=== PATIENT | female | born 1945 | race Caucasian/White ===

== ENCOUNTER → 2017-03-16 | Day surgery (SDC) | payer MEDICARE, OTHER ==
[~2017-03-16] VITALS: Ht 167.6 cm; Wt 63.0 kg
[2017-03-16] VITALS (11 sets, daily range): BP systolic 109–152; BP diastolic 55–72; PULSE 53–76; RESP 11–19; O2SAT 95–100
[~2017-03-16] MED LIST: CALC600T12 PO; CHOL200025 PO; CeFAZolin Inj 2 GM in IV Premix 1 EACH IV ONE; Dexamethasone 4 mg/mL Inj IVPUSH PRN; Dexamethasone 4 mg/mL Inj ONE; EPHEDrine Sulfate 50 mg/mL Inj IVPUSH PRN; EPHEDrine/NS 5 mg/mL 5 mL Syringe ONE; GLUC-120 PO; Glycopyrrolate 0.2 MG/ML 1mL Inj ONE; HYDR-656 PO; LEVO100T6 PO; LUTE1CAP4 PO; Lactated Ringer's 1,000 ML IV SCH; Lactated Ringer's 500 ML IV PRN; Lidocaine 2%-Epi 1:100,000 20 mL Inj NERVEBLOCK ONE; MULT-1018 PO; MetoCLOpramide 5 mg/mL 2 mL Inj IVPUSH PRN; OXYC1TAB24 PO; Ondansetron 2 mg/mL 2 mL Inj IVPUSH PRN; Ondansetron 2 mg/mL 2 mL Inj ONE; Phenylephrine 10,000 mCg/mL Inj IVPUSH PRN; Propofol 10,000 mCg/mL 20 mL Inj ONE; fentaNYL-PF 50 mCg/mL 2 mL Inj IVPUSH PRN; fentaNYL-PF 50 mCg/mL 2 mL Inj ONE; oxyCODONE-Acetamin 5-325 mg Tablet PO PRN
[2017-03-16] MEDS: Lactated Ringer's 1,000 ML IV SCH ×2 (06:28→07:19)
--- NOTE | 2017-03-16 06:49 | PCM.HPANE ---
Patient Data Date of Service: Mar 16, 2017 Surgeon Admitting Provider: Attending Provider:Deedee Galeas DPM Primary Care Physician:Jim Other Provider:Monae Chairez Anesthesia Reason for Visit Right Foot Hallux Valgus Ht/WT & BMI Height (Feet): 5 Height (Inches): 6 Weight (Kilograms): 63 Body Mass Index 22.00 Allergies Coded Allergies: No Known Allergies (Verified , 03/04/04) Past Anesthesia History Anesthesia History: Denies:: Abnormal Airway, Anesthesia Reactions, Difficult Intubation, Fam Anesthesia Reaction, Malignant Hyperthermia Diabetes History Hx Diabetes?: No MRSA MRSA: No Medications Hypertension Medication: No Home Meds Incl Beta Juan: No Reported Medications Cholecalciferol (Vitamin D3) (Vitamin D3)2,000 Unit Tablet2,000 Unit PO DAILY 03/09/17 oxyCODONE-Acetaminophen 5-325 mg 1 Each Tablet1-2 Tab PO Q6H PRN For Pain Ref 0 03/09/17 Multivitamin (Multi Vitamin Daily)1 Each Tablet1 Each PO DAILY 30 Days Ref 0 03/09/17 Lutein/Zeaxanthin (Lutein-Zeaxanthin 25-5 mg Sfgl)1 Each Capsule1 Each PO DAILYWD 03/09/17 Levothyroxine 100 Mcg [id number] Mcg PO DAILY For Thyroid Replacement Ref 0 03/09/17 hydrOXYzine Hcl (HydrOXYzine Hcl)25 Mg [id number] Mg PO PRN For Spasm Ref 0 03/09/17 Gluc 2Kcl/Chondr/Farhat Hy/Hy AC (Glucosamine & Chondroitin Cap)1 Each Capsule1 Each PO DAILY 03/09/17 Calcium Carbonate (Calcium)600 Mg Tablet1,200 Mg PO DAILY 03/09/17 Discontinued Reported Medications Ibuprofen 200 Mg [id number] Mg PO QID PRN For Pain Ref 0 10/10/14 Acetaminophen (Tylenol Extra Strength)500 Mg Nxkcna101 Mg PO PRN PRN For Headache 10/10/14 Magnesium Oxide (Magnesium)400 Mg [id number] Mg PO DAILY 10/10/14 [Tuan Red] No Conflict Check1 Capsule PO DAILY 10/10/14 Cholecalciferol (Vitamin D3) (Vitamin D3)1,000 Unit Tab.chew1,000 Unit PO DAILY 10/10/14 Calcium Carbonate (Calcium)600 Mg Tablet1,200 Mg PO DAILY 10/10/14 Lutein 20 Mg Mxfnsrb19 Mg PO DAILY 10/10/14 Multivitamin (Multi Vitamin Daily)1 Each Tablet1 Each PO DAILY 30 Days Ref 0 10/10/14 Levothyroxine 100 Mcg [id number] Mcg PO DAILY For Thyroid Replacement #30 TABLET Ref 0 10/10/14 History History of ENT Problems?: No HEENT History: Positive for:: Hearing Problem Denies:: Abnormal Airway Cataracts Difficult Intubation Dysphagia Glaucoma Sinus Problem Denture Type: None Teeth Condition: Within Normal Limits Hx of Heart Problems?: No Cardiovascular History: Denies:: AICD Abdominal Aortic Aneurism Atrial Fibrillation Cardiac Surgery Chest Pain Congestive Heart Failure Coronary Artery Disease Edema Heart Murmur Hypertension Irregular Heartbeat Pacemaker Peripheral Vascular Rheumatic Fever Thrombophlebitis Valvular Heart Disease Hx of Respiratory Problem?: No Respiratory History: Denies:: Asthma COPD Emphysema Oxygen Administration Pneumonia Tuberculosis Use of C-PAP Machine Hx Neurologic Problems?: No Neurological History: Denies:: CVA Dizziness Headaches (remote hx of ) Multiple Sclerosis Parkinson's Disease Seizures TIA Hx of GI Problems?: No Hx of Problems?: No Genitourinary History: Denies:: Kidney Stones Urinary Tract Infection Female Hx: Positive for:: Problems with Breasts? (hx of right mastectomy ) Denies:: Currently Skin History: Denies:: History Skin Disorders? Pressure Ulcers Hx Musculoskeletal Problems?: Yes Musculoskeletal History: Positive for:: Musculoskeletal Trauma (right foot bunion current admission problem) Osteoarthritis Denies:: Back Injury Fibromyalgia Joint Replacement Myasthenia Gravis Rheumatoid Arthritis Systemic Lupus Hx of Psycho/Social Problems?: No Psycho Social History: Denies:: Anxiety Hx Depression Hx Surgeries?: Yes (right mastectomy,tubal, dandre ) Hx Any Other Health Problems?: Yes Other History: Positive for:: Cancer (right breast ) Denies:: Thyroid Disease History Blood Transfusions: Positive for:: Accept Blood Products? Denies:: Blood Transfusions Hx Diabetes: No Hx Alcohol Use: YesAlcoholic Drinks Per Day: holidaysHx Substance Use: No Have You Smoked inLast 12 mo: No Stop/Bang Treated for Sleep Apnea?: No Do You Have a CPAP Machine?: No S-Snoring: Do You Snore Loudly: No T-Tired: feel tired, fatigued: No O-Obsered: Observed not breath: No P-Blood Pressure: treated: No B- Body Mass Index > 35 kg/m2: No A- Age over 50: Yes N- Neck Large Circumference: No G- Gender Male: No NGA Total Score: 1 NGA Risk Assessment: Low Risk, <3 Yes Risk Assessment Category Category 1A: Patient has history of documented sleep apnea, and HAS NOT received any narcotic, sedative or anesthesia administration during this stay. Category 1B: Patient has history of documented sleep apnea, and HAS received any narcotic , sedative or anesthesia administration during this stay Category 2: Patient has SUSPECTED Obstructive Sleep Apnea, and HAS received any narcotic , sedative or anesthesia administration during this stay. Category 3: Patient has SUSPECTED Obstructive Sleep Apnea and HAS NOT received narcotic, sedative or anesthesia administration during this stay. Category 4: Outpatient in Procedural Areas with known sleep apnea or who screen positive for High Risk via the STOP/BANG questionnaire. Exam Exam Vital Signs Vital Signs Date Time Temp Pulse Resp B/P Pulse Ox O2 Delivery O2 Flow Rate FiO2 03/16/17 06:38 36.4 56 16 152/70 100 Room Air General Appearance: Alert, Oriented X3, Cooperative, No Acute Distress HEENT/AIRWAY: MP 1 Lungs: Clear to Auscultation Heart: Regular Rate/Rhythm, No Murmurs/Rubs/Gallops Meds/Labs/Diagnostics Admission Meds Current Medications Lactated Ringer's (Lr) 1,000 ml @ 120 mls/hr Q8H20M IV Last administered on t 06:28; Start 03/16/17 at 05:00; Stop 03/16/17 at 13:19 Plan Impression Patient chart reviewed, patient interviewed and anesthestic plan with risks, benefits, and alternatives discussed, and informed consent obtained. NPO per Anesth. Guidelines: Yes ASA Physical Status: ASA2 Mod Systemic Disease Anesthetic Plan: GA Bene/Risks/Altern/Consents: Yes HP Complete Prior to Induction: Yes Tu Henson DO Mar 16, 2017 06:49
[2017-03-16] MEDS: HYDROmorphone 1 mg/mL Inj IVPUSH PRN ×2 (08:53→09:00)
--- NOTE | 2017-03-16 09:01 | PCM.PODPO ---
Podiatry Operative Report Date of Service: Mar 16, 2017 Date of Service Mar 16, 2017 Pre Operative Diagnosis Right hallux valgus Post Operative Diagnosis Right hallux valgus Procedure Right bunionectomy with distal first metatarsal osteotomy and intercuneiform stabilization. Surgeon Surgeon: Deedee Galeas DPM Assistants: None Indication for Procedure Severe bunion deformity, painful, interfering with shoe gear. Findings 30% loss of articular cartilage, 10% remaining after procedure. Good correction intraoperatively prior to placement of intercuneiform screw from medial cuneiform into the base of the second metatarsal. Additional stability achieved through placement of the proximal stabilization screw. Details of Procedure The patient was identified in the preoperative holding area and brought back to the operating room. She was placed on the operating table in supine position. The timeout protocol was completed in the patient's general anesthesia initiated. A local Lorenzo block was applied to the right foot. The right foot was prepped and draped in usual aseptic manner. Additional lidocaine with epinephrine was used dorsally only along the incision line. A linear incision was made on the dorsomedial aspect of the first metatarsophalangeal joint. It was deepened bluntly to the joint capsule. A lateral release of the adductor hallucis tendon was done with the #15 scalpel. This allowed a better motion of the hallux medially. The medial dorsal capsule was linearly incised and reflected off of the first metatarsal head medially and dorsally. The medial bunion eminence was resected. A 0.045 inch K wire was used as a guidewire to achieve lateral and plantar translation of the first metatarsal head. A chevron-shaped osteotomy was then made with the apex in the medial metatarsal head. The capital fragment was translated laterally and plantarly, as planned. A K wire was inserted to hold the capital fragment in the corrected position. Using a guidewire, of cannulated 3 mm fourth toe prone screw was inserted across the osteotomy distal dorsally to plantar proximally. The bone was found to be soft. The stabilization was adequate. The overhanging bone on the medial aspect of the proximal fragment was resected with a bone saw and I smoothed it out with a rongeur. The medial cuneiform was clamped to the proximal aspect of the second metatarsal. Guidewire was used to insert a partially-threaded 4 mm screw from the medial aspect of the cuneiform through the base of the second metatarsal first additional stability. This helped to maintain the correction of the bunion. Irrigation was done with normal saline. A medial capsulorrhaphy was then achieved with resection of a small wedge of capsule using iris scissors and forceps. This was closed with 3- 0 Vicryl. 4-0 Prolene was used in interrupted horizontal suturing technique to close the skin. The foot was cleansed and dressed with Sarbjit silk, saline moistened gauze, Kerlix, and Coban. The patient was weaned off of general anesthesia and taken to the recovery room with vital signs stable and the vascular status to the right foot intact. A postoperative shoe was placed on the right foot. Grafts, Implants: Implants-See Implant Record Complications There were no periprocedural complications identified. Condition Stable Anesthetic Administered: GA Drains: None Catheters: None Output, Estimated Blood Loss: 10 (ml) Blood Admin during surgery: No Surgical Cast or Splint: Post-op Boot Surgical Specimen Removed: No Specimen sent to Pathology: No Post Operative Plan Weight-bear as tolerated in a postoperative shoe at all times. Postop pain medication has been prescribed prior to the procedure. The patient was instructed not to change her dressing until her follow-up visit with me next week. Should the dressing becomes soiled, she is to call our office. Postoperative instructions include signs of infection and to report toes as necessary. Deedee Galeas DPM Mar 16, 2017 09:01
--- NOTE | 2017-03-16 10:45 | PCM.ANEP1 ---
Post Anesthesia PACU Phase 1 Assessment Vital Signs Vital Signs Date Time Temp Pulse Resp B/P Pulse Ox O2 Delivery O2 Flow Rate FiO2 03/16/17 10:15 53 18 129/72 97 Room Air 03/16/17 09:27 65 18 118/68 98 Room Air 03/16/17 09:15 36.6 65 13 121/64 95 Room Air 03/16/17 09:10 63 13 118/71 97 Room Air 03/16/17 09:00 36.5 66 12 117/68 95 Room Air 03/16/17 08:55 67 19 114/63 96 Room Air 03/16/17 08:50 72 17 116/63 96 Room Air 03/16/17 08:45 70 19 118/61 96 Room Air 03/16/17 08:40 76 11 109/65 96 Room Air 03/16/17 08:37 36.7 75 11 115/55 96 Room Air 03/16/17 06:38 36.4 56 16 152/70 100 Room Air Anesthetic Administered: GA Level of Alertness: Awake, talking Pain: No Nausea or Vomiting: No CV Function & Hydration Stable: Yes Airway Device: Oxygen Delivery: Room Air Lungs: Clear to Auscultation PACU Phase 2 Assessment Complications: No Patient Instructions Provided: Yes Tu Henson DO Mar 16, 2017 10:45
== END | disposition home or self-care (01) ==
LOC: SAS 05:46
PROVIDERS: ATTEND Podiatrist
DX: M20.11 Hallux valgus (acquired), right foot (principal); M19.90 Unspecified osteoarthritis, unspecified site; Z79.899 Other long term (current) drug therapy
CPT/HCPCS: 28296; J0690; J1100; J1170; J2250; J2405; J3010; J7120